=== PATIENT | female | born 1950 | race Caucasian/White ===

== ENCOUNTER 2017-08-30 08:36 | Inpatient (IN) | payer MEDICARE, OTHER ==
[2017-08-15 13:55] VITALS: BMI 29.0
--- NOTE | 2017-08-15 14:42 | PAT Medication Instructions ---
Service Date Aug 15, 2017. Current Home Medication List Acetaminophen Tab (Tylenol), 650 MG PO Q6 PRN for Pain Biotin (Biotin), 1 CAP PO QAM Coenzyme Q10 (Ubidecarenone) (Co Q10), 1 CAP PO QAM Tmlwxfqbtar-Dorasdalwmd-Xac C- (Glucosamine Chondroitin), 1 CAP PO QAM Ibuprofen (Advil), 400 MG PO Q6 PRN for Pain Multivitamin (Multivitamin), 1 TAB PO QAM Rosuvastatin Calcium (Crestor), 5 MG PO HS Sertraline (Zoloft), 50 MG PO QAM Zolpidem Tartrate (Ambien), 5-10 MG PO HS PRN for Insomnia Medication Instructions For Your Scheduled Surgery -Contact your surgeon for instructions for: Ibuprofen (Advil), 400 MG PO Q6 PRN for Pain - Hold the following medications 2 weeks prior to surgery: Coenzyme Q10 (Ubidecarenone) (Co Q10), 1 CAP PO QAM Azqjfjfloyc-Ajrncqjnpfo-Cci C- (Glucosamine Chondroitin), 1 CAP PO QAM - Hold the following medications the morning of surgery: Multivitamin (Multivitamin), 1 TAB PO QAM Biotin (Biotin), 1 CAP PO QAM - Take the following medications the morning of surgery with a sip of water: Sertraline (Zoloft), 50 MG PO QAM Acetaminophen Tab (Tylenol), 650 MG PO Q6 PRN for Pain - Take the following medications as scheduled the night before surgery: Zolpidem Tartrate (Ambien), 5-10 MG PO HS PRN for Insomnia Rosuvastatin Calcium (Crestor), 5 MG PO HS Acetaminophen Tab (Tylenol), 650 MG PO Q6 PRN for Pain If you have any questions please call us at [phone] or [phone] or [phone]
--- NOTE | 2017-08-15 15:38 | DIAGNOSTIC IMAGING REPORT ---
TWO VIEW CHEST CLINICAL HISTORY: Preoperative examination. FINDINGS: PA and lateral chest radiographs are obtained. No prior studies are available for comparison at the time of dictation. The cardiomediastinal silhouette is unremarkable. There is atherosclerotic calcification of the thoracic aorta. The lungs and pleural spaces are clear. There is no pneumothorax. The skeletal structures are osteopenic. Degenerative changes noted throughout the imaged spine. Surgical clips are seen in the right upper quadrant. IMPRESSION: No active disease in the chest. Electronically signed by: Stew Thorne M.D. 08/15/2017 3:36 PM Dictated Date/Time: 08/15/2017 3:36 PM
[2017-08-15 16:11] LABS: BASO % 0.4 %; BASO ABS # 0.02 K/uL (0-0.2); EOS % 1.1 %; EOS ABS # 0.06 K/uL (0-0.5); HEMATOCRIT 39.2 % (37-47); HEMOGLOBIN 13.4 g/dL (12.0-16.0); IG# 0.01 K/uL (0.00-0.02); LYMPH % 34.5 %; MEAN CELL VOLUME 93.3 fL (80-100); MEAN CORPUSCULAR HEMOGLOBIN 31.9 pg (25-34); MEAN CORPUSCULAR HGB CONC 34.2 g/dl (32-36); MEAN PLATELET VOLUME 9.7 fL (7.4-10.4); MONO % 6.2 %; MONO ABS # 0.34 K/uL (0.11-0.59); NEUT % 57.6 %; NEUT ABS # 3.17 K/uL (1.4-6.5); PLATELET COUNT 272 K/uL (130-400); RED CELL DISTRIBUTION WIDTH SD 44.4 fL (36.4-46.3)
[2017-08-15 16:18] LABS: PTT PATIENT 27.2 SECONDS (21.0-31.0)
[2017-08-15 16:21] LABS: CALCIUM 9.2 mg/dl (8.5-10.1); CREATININE 0.71 mg/dl (0.60-1.20); POTASSIUM 3.9 mmol/L (3.5-5.1)
--- NOTE | 2017-08-29 17:20 | HISTORY & PHYSICAL EXAMINATION ---
DATE OF ADMISSION: 08/30/2017 CHIEF COMPLAINT: Chronic right shoulder pain. HISTORY OF PRESENT ILLNESS: This is a 67-year-old female patient of Dr. Kidd'svitlana complaining of chronic right shoulder pain. The patient has been diagnosed with end-stage osteoarthritis, per clinical and radiographic exams. The patient has failed conservative treatment including intraarticular injections and anti-inflammatories. She has also failed Tylenol and Voltaren gel. The patient wished to proceed with a right total shoulder arthroplasty. PAST MEDICAL HISTORY: Anxiety, osteoarthritis. SOCIAL HISTORY: Nonsmoker, nondrinker. PAST SURGICAL HISTORY: Tonsils, appendectomy, gallbladder, LAVH, meniscus tear and hand surgery. FAMILY HISTORY: Noncontributory. REVIEW OF SYSTEMS: The patient complains of chronic right shoulder pain. Otherwise, denies any shortness of breath, chest pain, nausea, vomiting or any other joint complaints. FAMILY HISTORY: Noncontributory. MEDICATIONS: Glucosamine chondroitin daily, a multivitamin daily, probiotic 10 billion cell capsule daily, biotin 1 mg daily, vitamin B complex daily, CoQ10 30 mg daily, Zoloft 50 mg daily, and Crestor 5 mg daily. ALLERGIES: INCLUDE PENICILLINS. PHYSICAL EXAMINATION: GENERAL: Well-developed, well-nourished 67-year-old female in no acute distress. She is alert and oriented x3 and pleasant. HEENT: Normocephalic, atraumatic. Extraocular motions are intact. Pupils are equal and reactive to light. HEART: Regular rate and rhythm. No murmurs are appreciated. LUNGS: Clear. ABDOMEN: Soft, nontender, bowel sounds present. EXTREMITIES: Right shoulder reveals active range of motion of 0-160 passively to full range of motion with pain. She has crepitation and pain with passive range of motion. She has 4/5 strength. NEUROLOGIC: Neurovascularly, she is intact in her right upper extremity. DIAGNOSES: Right shoulder end-stage osteoarthritis, anxiety and osteoarthritis. PLAN: The patient was advised of her diagnosis. Indications, risks, benefits, and postop course have all been reviewed. The patient wishes to proceed with a right total shoulder arthroplasty. Necessary consent forms, preoperative testing and clearances will be obtained.
[~2017-08-30] VITALS: Ht 160 cm; Wt 76.2 kg
[~2017-08-30 08:36] MED LIST: ACET325T96 PO; ACETAMINOPHEN 500 MG TAB PO SCH; BIOT1CAP9 PO; CEFAZOLIN 1000MG IV PUSH 5 ML IV SCH; COEN1CAP PO; CeleBREX 200 MG CAP PO SCH; DEXAMETHASONE 4 MG TAB PO SCH; FAMOTIDINE 20 MG TAB PO SCH; FENTANYL CITRATE INJ 50 MCG/1 ML 2 ML VIAL ONE; GABAPENTIN 300 MG CAP PO SCH; GLUC1CAP35 PO; IBUP-1050 PO; LACTATED RINGER'S 1000ML IV SCH; METOCLOPRAMIDE HCL 10 MG TAB PO SCH; MIDAZOLAM HCL 1 MG/ML 2ML VIAL ONE; MULT-506 PO; ROPIVACAINE 0.5% 5 MG/ML 30 ML VIAL ONE; ROSU5TAB PO; SCOPOLAMINE 1.5 MG TDSY TD SCH; SERT50TA PO; ZOLP5TAB PO
[2017-08-30 08:55] VITALS: BP_SYST 153; BP_SYST 193; BP_DIAS 115; BP_DIAS 94; PULSE 80; TEMP 36.4; O2SAT 97; Ht 160 cm; Wt 76.2 kg
--- NOTE | 2017-08-30 09:16 | History & Physical Bridge Note ---
H&P Re-Evaluation Bridge Note: I have examined the patient, reviewed the History & Physical and in the interval since the performance of the History & Physical I have noted the following changes of clinical significance: No changes noted
[2017-08-30] MEDS ORDERED: ONDANSETRON INJ 2 MG/ML 2 ML VIAL IV PRN ×2 (10:30→14:30)
[2017-08-30] MEDS ORDERED: FENTANYL CITRATE INJ 50 MCG/1 ML 2 ML VIAL IV PRN (10:30)
[2017-08-30] MEDS ORDERED: EpHEDrine SULFATE INJ 50 MG/ML AMP IV PRN (10:30)
[2017-08-30] MEDS ORDERED: ATROPINE SULFATE 0.1 MG/ML 5ML SYR IV PRN (10:30)
[2017-08-30] MEDS ORDERED: EpINEphrine HCL INJ 1 MG/ML 5ML SYRINGE ONE (10:40)
[2017-08-30] MEDS ORDERED: BACITRACIN 50000 UNIT VIAL ONE (10:40)
[2017-08-30] MEDS ORDERED: DEXAMETHASONE SOD INJ 4 MG/ML VIAL ONE (12:56)
[2017-08-30] MEDS ORDERED: ONDANSETRON INJ 2 MG/ML 2 ML VIAL ONE (12:56)
[2017-08-30] MEDS ORDERED: ROCURONIUM BROMIDE 10 MG/ML 5 ML VIAL IV ONE (12:56)
[2017-08-30] MEDS ORDERED: LIDOCAINE HCL 2% 2 ML VIAL (20MG/ML) ONE (12:56)
[2017-08-30] MEDS ORDERED: PROPOFOL IV EMULSION 10 MG/ML 20 ML VIAL IV ONE (12:56)
[2017-08-30] MEDS ORDERED: PHENYLEPHRINE 100MCG/ML 5ML SYR ONE (13:50)
--- NOTE | 2017-08-30 14:12 | [facility] Post Operative Brief Note ---
Immediate Operative Summary Operative Date Aug 30, 2017. Pre-Operative Diagnosis Right shoulder End-Stage osteoarthritis Post-Operative Diagnosis Same,biceps tenosynovitis Procedure(s) Performed Right Total Shoulder Arthroplasty,biceps tenodesis Surgeon Dr Kidd Commission Clerk Surgeon(s) Hai Bains PA-C Estimated Blood Loss 75CC Findings Consistent with Post-Op Diagnosis Specimens A. Right Humeral Head Drains 2 hemovac Anesthesia Type General Regional Complication(s) none
[2017-08-30] MEDS ORDERED: METOCLOPRAMIDE HCL INJ 5 MG/ML 2 ML VIAL IV PRN (14:30)
[2017-08-30] MEDS ORDERED: SOD PHOSPHATE/SOD BIPHOSPHATE ENEMA 132 ML BTL PR PRN (14:30)
[2017-08-30] MEDS ORDERED: NALOXONE HCL 0.4 MG/1 ML VIAL/CARP IV PRN (14:30)
[2017-08-30] MEDS ORDERED: BISACODYL 10 MG SUPP PR PRN (14:30)
[2017-08-30] MEDS ORDERED: MAGNESIUM HYDROXIDE SUSP 30 ML UDC PO PRN (14:30)
[2017-08-30] MEDS ORDERED: ZOLPIDEM TARTRATE 5 MG TAB PO PRN (14:30)
--- NOTE | 2017-08-30 14:34 | Discharge Instructions ---
Discharge Instructions Date of Service Aug 30, 2017. Admission Reason for Admission: Right Shoulder Degenerative Joint Disease Discharge Discharge Diagnosis / Problem: Right TSA, biceps tenodesis Discharge Goals Goal(s): Improve function Activity Recommendations Activity Limitations: as noted below . Instructions / Follow-Up Instructions / Follow-Up ACTIVITY RECOMMENDATIONS: SELF CARE INSTRUCTIONS AFTER TOTAL SHOULDER ARTHROPLASTY A. You may do daily exercises as taught in physical therapy while in hospital. No lifting with the operative arm. Please schedule your outpatient physical therapy appointment to begin within 2-3 days after leaving the hospital. Specific restrictions will be written on your physical therapy prescription that is provided to you. B. You are to wear your sling/immobilizer at all times EXCEPT when performing your daily exercises, participating in physical therapy and for hygiene purposes. C. You may perform dry, daily dressing changes. Please keep your incision covered. You may shower 48 hours after surgery. Do not apply soap or any ointment/ lotions directly over incision. Do not soak incision in bath tub/swimming pool. D. You may use ice as needed to operative shoulder. SPECIAL CARE INSTRUCTIONS: MEDICATION INSTRUCTIONS: *It is recommended you take Aspirin 325mg daily for four weeks post-op. VERY IMPORTANT TO READ AND REVIEW A. There are a few signs you need to watch for after you are home. Call [facility] at [phone] if you experience any of the followin. Increased severe shoulder pain. Some pain is expected especially when you exercise. 2. Increased swelling in you shoulder or arm; pain or swelling in either upper extremity. 3. Any fluid drainage from the incision. 4. Shortness of breath or chest pain. B. Please call [facility] at [phone] if you have any questions or concerns about your operation or recovery. C. Call your physician if: 1. Temperature is greater than 101 degrees (F). 2. Pain is not relieved by prescribed pain medications. 3. Increase drainage or redness from incision. 4. Unanswered questions or concerns. FOLLOW UP VISIT: Please call [facility] at [phone] to schedule a follow up appointment with Dr. Kidd or his PA in 12-14 days from your surgery date. Current Hospital Diet Patient's current hospital diet: Regular Diet Discharge Diet Recommended Diet: Regular Diet Procedures Procedures Performed: Right Total Shoulder Arthroplasty,biceps tenodesis Pending Studies Studies pending at discharge: no Medical Emergencies . Who to Call and When: Medical Emergencies: If at any time you feel your situation is an emergency, please call 911 immediately. . Non-Emergent Contact Non-Emergency issues call your: Primary Care Provider . "Provider Documentation" section prepared by Poli Bains. . VTE Core Measure Inpt VTE Proph given/why not?: SCD's [place] Drug Monitoring Program Search Results: patient reviewed within database, no issues identified
--- NOTE | 2017-08-30 14:42 | Anesthesiology Progress Note ---
Anesthesia Post Op Note Date & Time Aug 30, 2017 at 14:42 Vital Signs Pain Intensity: 0 Vital Signs Past 12 Hours Date Time Temp Pulse Resp B/P (MAP) Pulse Ox O2 Delivery O2 Flow Rate FiO2 08/30/17 14:25 36.5 83 12 137/80 99 Nasal Cannula 4 08/30/17 08:55 36.4 80 20 193/94 97 Room Air 153/115 Notes Mental Status: alert / awake / arousable, participated in evaluation Pt Amnestic to Procedure: Yes Nausea / Vomiting: adequately controlled Pain: adequately controlled Airway Patency, RR, SpO2: stable & adequate BP & HR: stable & adequate Hydration State: stable & adequate Anesthetic Complications: no major complications apparent Block working well in pacu
--- NOTE | 2017-08-30 15:00 | DIAGNOSTIC IMAGING REPORT ---
R SHOULDER MIN 2 VIEWS ROUTINE HISTORY: 67 years-old Female Post shoulder surgery status post right shoulder surgery. Degenerative joint disease. COMPARISON: Chest radiographs 08/15/2017 TECHNIQUE: 2 views of the right shoulder FINDINGS: Postoperative changes from right shoulder hemiarthroplasty which is in satisfactory alignment. No retained foreign bodies identified. Surgical joe are noted along with expected postsurgical soft tissue swelling and deep tissue air. Surgical drain is in place. Imaged lung urban appear clear. Moderate degenerative changes of the right AC joint. IMPRESSION: Right shoulder arthroplasty in satisfactory alignment. The above report was generated using voice recognition software. It may contain grammatical, syntax or spelling errors. Electronically signed by: Agusto Duenas M.D. 08/30/2017 2:58 PM Dictated Date/Time: 08/30/2017 2:57 PM
[2017-08-30 15:50] VITALS: O2SAT 96
[2017-08-30 16:10] VITALS: BP 125/81; PULSE 82; TEMP 36.7; O2SAT 97
[2017-08-30 16:40] VITALS: BP 137/80; PULSE 89; TEMP 36.5; O2SAT 98
[2017-08-30] MEDS: CHECK SCOPOLAMINE PATCH PLACEMENT SCH (16:50)
[2017-08-30 18:40] VITALS: BP 118/74; PULSE 82; TEMP 36.6; O2SAT 93
[2017-08-30] MEDS: CLINDAMYCIN IV 600 MG in DEXTROSE 5% 50ML 50 ML IV SCH (20:56)
[2017-08-30] MEDS: D5W AND 1/2NSS + 20MEQ KCL 1,000 ML IV SCH (20:56)
[2017-08-30] MEDS: ROSUVASTATIN CALCIUM 5 MG TAB PO SCH (20:56)
[2017-08-30] MEDS: DOCUSATE SODIUM 100 MG CAP PO SCH (20:56)
[2017-08-30] MEDS: ACETAMINOPHEN 500 MG TAB PO SCH (21:01)
[2017-08-30 23:15] VITALS: BP 108/68; PULSE 85; TEMP 36.6; O2SAT 94
--- NOTE | 2017-08-31 00:39 | OPERATIVE REPORT ---
DATE OF OPERATION: 08/30/2017 INDICATION FOR PROCEDURE: The patient is a 67-year-old female who presents with chronic bilateral shoulder pain. She has radiographs demonstrating end-stage osteoarthritis in both of her shoulders. Her right shoulder was more symptomatic. Radiographs demonstrate in the right shoulder that she is veba-jr-xqgo in the glenohumeral joint. She has an inferior humeral osteophyte. PREOPERATIVE DIAGNOSIS: End-stage osteoarthritis of the right shoulder. POSTOPERATIVE DIAGNOSIS: Same including biceps tendinitis, chronic. PROCEDURE: Right total shoulder arthroplasty, biceps tenodesis. SURGEON: Seymour Kidd MD. DIGITIZER OPERATOR: Poli Bains PA-C. ANESTHESIA: Regional block and general. OPERATIVE PROCEDURE: The patient was taken to the operating room and anesthetized with regional block and general anesthetic. She was positioned on the operating room table with a 40 degree beach chair position. A towel roll was placed in the medial border of her right scapula. She was translated to the right side of the bed, so her shoulder could be manipulated off the bed as necessary. Her shoulder was examined demonstrating she had a pretty good range of motion. She had about 170 degrees of forward elevation, 80 degrees of external rotation, 90 degrees of internal rotation. She had a little bit of ligamentous laxity. She had wnvc-jz-wrjb crepitation. After this right shoulder was sterilely prepped and draped with ChloraPrep. An anterior incision was made in the deltopectoral interval. Skin was incised sharply. Subcutaneous flaps were elevated. The cephalic vein was dissected out and retracted laterally with the deltoid. The pectoralis was retracted medially. The upper centimeter of the pectoralis was released for inferior exposure. Biceps tendon was identified and noted to have chronic tendinitis. The synovium was resected. The biceps tendon was tenodesed to the pectoralis tendon with a otvnrz-wx-cxags #2 FiberWire sutures. The proximal biceps was resected. The circumflex vessels were tied off and divided laterally. The rotator cuff was noted to be intact. A self-retaining retractor was placed. The rotator interval was opened up and divided laterally. A transtendinous incision was made through the subscapularis tendon down into the capsule. Then the incision was carried laterally along the bicipital groove and the subperiosteal dissection was performed releasing the subscapularis off of the neck of the humerus and the capsule was released off inferior neck of the humerus. Gradually, externally rotated the arm exposing the inferior humeral osteophytes. The humeral head was completely down to bone. The osteophytes were resected with an artist's chisel and a rongeur. We did place a Vicryl traction suture into the subscapularis tendon to control that. The rotator interval was then released down to the glenoid. The humeral head was then retracted posterior to the glenoid with a Fukuda retractor. The labrum was resected circumferentially when the biceps tendon was resected. The glenoid was inspected and demonstrated that there was some osteoarthritic spurring on the anterior glenoid. The spur was resected. There was a little rim of articular cartilage still remaining anteriorly but the remainder of the posterior glenoid was eburnated bone and that was more slipped off posteriorly with some retroversion due to some wear of the bone. There was a posterior inferior osteophyte noted on the glenoid. We did release the capsule subperiosteally off the anterior glenoid inferiorly and posterior inferiorly using electrocautery right on the edge of the bone and a Concepcion elevator. The humeral head was then re-exposed with extension and external rotation. Humeral head cut was made with an oscillating saw in anatomic fashion. The Tornier Ascend Flex humeral component and the Affiniti CortiLoc glenoid component was utilized for this procedure. The central awl was used followed by sizing broaches up to a size 3 and then box osteotome was used to open the canal followed by broaches up to a 3 followed by a cup protector. The humerus was retracted posterior to the glenoid. The central drill hole was made into the glenoid for the glenoid component reamer. We chose to use the 40 mm glenoid component. The reamer for the 40 mm component was utilized. We did slightly ream down the anterior side to help change some of the version. The central drill hole was widened for the central peg of the component. The guide for the peripheral pegs was placed and the peripheral peg holes were drilled. Trial reduction was performed which was satisfactory and then the glenoid was irrigated copiously with antibiotic solution with bacitracin and then the drill holes were packed with epinephrine soaked tampons. Then the [place]os G cement was vacuum mixed. Tampons were removed. The glenoid was dried. The drill holes for the pegs were cemented with pressurized cement. We placed cement on the back of the glenoid with the central peg being pressfit. Then the 40 mm glenoid component was implanted in its position and impacted with the impactor until fully seated. Excess cement was cleared. The component was held in place until the cement cured and then the glenoid was irrigated copiously with antibiotic solution and bacitracin. Then attention was taken back to the humerus which time the cut protector was removed. The 43 mm x 60 mm low offset humeral head was rotated appropriately to get the best coverage and then did a trial reduction which was satisfactory stability through full range of motion. Then the humeral trial was removed. The neck cut was noted to be in an A. The final component was then assembled which was a 3A standard Ascend Flex humeral stem assembled to the 43 x 60 mm low offset humeral head. Then this implant was impacted into the canal with a tight fit. This was reduced to the glenoid. After further irrigation, the subscapularis was repaired with transosseous #5 FiberWire sutures that were placed prior to implanting the stem. These were placed into the hard bone in the bicipital groove, placed transosseously around the lesser tuberosity. The sutures were placed in Carlos-Milton suture technique repairing the subscapularis. Then, lateral row soft tissue fixation was performed with kmutru-ki-wgivc #2 FiberWire sutures. The rotator interval was closed maximal external rotation with interrupted #2 Fiberwire sutures. The patient's pectoralis split for inferior exposure was repaired with uqlrwh-kz-ejdqg #2 FiberWire sutures and we did tenodese the biceps tendon to the pectoralis with qgzfxv-tg-wxcqv #2 FiberWire sutures which was reinforced when we repaired the pectoralis at the end of the procedure. The wound was copiously irrigated again. Then 2 Hemovac drains were placed deep to deltopectoral interval. The deltopectoral interval was repaired with [id number]-kt-rkvky #1 Vicryl sutures. We did note that she had some bleeding in the cephalic vein. We tried cauterizing it but it continued to bleed, so we had to tie it off with silk ties and this occurred during the reaming part of the procedure. The subcutaneous tissue closed with interrupted 2-0 Vicryl sutures, skin closed with joe, sterile dressings were applied and a sling immobilizer. FREDY Sykes was my first aid officer. He functioned as first aid officer for the entire procedure. He assisted in patient positioning, prepping, draping, arm positioning, instrument management and soft tissue retraction. He performed the subcutaneous and skin closure and will participate in postoperative care of the patient. The patient's postoperative range of motion was assessed for stability of the repair, we had 45 degrees of abduction and 70 degrees of external rotation without tension on the repair. We had 90 degrees of abduction and forward elevation to 170 degrees range of motion without any tension on the repair. I attest to the content of the Intraoperative Record and any orders documented therein. Any exception s are noted below.
[2017-08-31] MEDS: OXYCODONE HCL IR 5 MG TAB (IMMEDIATE RELEASE) PO PRN ×5 (02:17→21:15)
[2017-08-31] MEDS: D5W AND 1/2NSS + 20MEQ KCL 1,000 ML IV SCH ×2 (03:33→14:10)
[2017-08-31] MEDS: CLINDAMYCIN IV 600 MG in DEXTROSE 5% 50ML 50 ML IV SCH (03:33)
[2017-08-31] MEDS: MoRPHine SULFATE 2 MG/ML CARP IV PRN (03:42)
[2017-08-31 04:15] VITALS: BP 120/72; PULSE 82; TEMP 36.6; O2SAT 93
[2017-08-31] MEDS: ACETAMINOPHEN 500 MG TAB PO SCH ×3 (05:21→21:02)
--- NOTE | 2017-08-31 05:48 | Orthopedic Progress Note ---
Orthopedic Progress Note Date of Service Aug 31, 2017. Subjective Post OP Day: 1 Reports: feeling well, pain controlled w PO medications, Denies: complaints, chest pain, SOB, nausea / vomiting, light headedness, calf pain Additional Notes: AM labs pending. Objective N/V intact, capillary refill less than 2 sec., dressing C/D/I, A&O x3 Sling in tact, fingers mobile. Date Time Temp Pulse Resp B/P (MAP) Pulse Ox O2 Delivery O2 Flow Rate FiO2 08/31/17 04:15 36.6 82 18 120/72 (88) 93 Room Air 08/31/17 00:00 Room Air 08/30/17 23:15 36.6 85 16 108/68 (81) 94 Room Air 08/30/17 18:40 36.6 82 18 118/74 (89) 93 Room Air 08/30/17 16:40 36.5 89 18 137/80 (99) 98 Nasal Cannula 2.0 08/30/17 16:10 36.7 82 18 125/81 (96) 97 Nasal Cannula 2.0 08/30/17 15:50 96 Nasal Cannula 2.0 08/30/17 15:15 36.5 73 16 141/72 97 Nasal Cannula 4 08/30/17 15:05 75 16 142/74 100 Nasal Cannula 4 08/30/17 14:55 78 16 133/66 100 Nasal Cannula 4 08/30/17 14:45 70 12 138/72 100 Nasal Cannula 4 08/30/17 14:35 75 12 130/73 99 Nasal Cannula 4 08/30/17 14:25 36.5 83 12 137/80 99 Nasal Cannula 4 08/30/17 08:55 36.4 80 20 193/94 97 Room Air 153/115 Laboratory Results 24 Hours: Test 08/31/17 04:44 Assessment & Plan Assessment: POD #1, Right TSA, biceps tenodesis Plan: PT/ OT D/C planning- Home w OPPT As per medicine. Inhouse Planning Pain Management: Morphine, PO Tylenol, Oxy IR DVT Prophylaxis: SCDs Discharge Planning Discharge Planning: home with oppt Pain Management: PO Tylenol, Oxy IR Therapy: Physical Therapy, Occupational Therapy
[2017-08-31 05:56] LABS: HEMATOCRIT 32.3 % (37-47); MEAN CELL VOLUME 93.4 fL (80-100); MEAN CORPUSCULAR HEMOGLOBIN 31.8 pg (25-34); MEAN CORPUSCULAR HGB CONC 34.1 g/dl (32-36); MEAN PLATELET VOLUME 9.4 fL (7.4-10.4); PLATELET COUNT 220 K/uL (130-400); RED CELL DISTRIBUTION WIDTH CV 13.1 % (11.5-14.5); RED CELL DISTRIBUTION WIDTH SD 44.4 fL (36.4-46.3); WHITE BLOOD COUNT 10.62 K/uL (4.8-10.8)
[2017-08-31 06:37] LABS: CALCIUM 8.7 mg/dl (8.5-10.1); CREATININE 0.64 mg/dl (0.60-1.20); POTASSIUM 4.1 mmol/L (3.5-5.1)
[2017-08-31 07:49] VITALS: BP 114/71; PULSE 72; TEMP 36.3; O2SAT 98
[2017-08-31] MEDS: CHECK SCOPOLAMINE PATCH PLACEMENT SCH ×3 (08:00→15:56)
[2017-08-31] MEDS: MoRPHine SULFATE 4 MG/ML 1 ML CARP\\VIAL IV PRN ×3 (10:07→18:12)
[2017-08-31] MEDS: DOCUSATE SODIUM 100 MG CAP PO SCH ×2 (10:07→21:01)
[2017-08-31] MEDS: SERTRALINE HCL 50 MG TAB PO SCH (10:08)
[2017-08-31] MEDS: PANTOprazole SOD 40 MG TAB PO SCH (10:08)
[2017-08-31] MEDS: MULTIVITAMIN TAB PO SCH (10:08)
[2017-08-31 11:38] VITALS: BP 110/72; PULSE 69; TEMP 36.6; O2SAT 93
--- NOTE | 2017-08-31 12:53 | Medical Consult ---
Consultation Date of Consultation: Aug 31, 2017. Attending Physician: Seymour Kidd M.D. Reason for Consultation: Medical management History of Present Illness Patient is a 67 y/o male, with PMHx of anxiety, HLD, osteoarthritis, and DJD, s/ p R total shoulder arthroplasty and biceps tenodesis by Dr. Kidd on 08/30. Hospitalist team was consulted for medical management. Pain is well controlled- but starting to increase. Eating and drinking OK. +flatus, no BM postop. Patient denies any fever, chills, sweats, lightheadedness, dizziness, vision changes, CP, palpitations, edema, SOB, wheezing, cough, abdominal pain, nausea, vomiting, diarrhea, urinary symptoms, melena, numbness/tingling, weakness, anxiety/depression, active bleeding, or new skin discoloration/changes. Past Medical/Surgical History PAST MEDICAL HISTORY: Anxiety HLD osteoarthritis DJD PAST SURGICAL HISTORY: Tonsillectomy appendectomy cholecystectomy LAVH meniscus tear hand surgery Social History Smoking Status: Never Smoker Alcohol Use: none Marital Status: Housing Status: lives with significant other Allergies Coded Allergies: Penicillins (Verified Allergy, Unknown, RASH, 08/30/17) Home Medications Reported Home Medications Medications Dose Route/Sig Max Daily Dose Days Date Category Co Q10 (Coenzyme Q10) 30 Mg Cap 1 Cap PO QAM 08/15/17 Reported Biotin 10 Mg Cap 1 Cap PO QAM 08/15/17 Reported Multivitamin (Multivitamins) Tab 1 Tab PO QAM 08/15/17 Reported Glucosamine Chondroitin (Ovdgrkfcizm-Velotzvrkgt-Elo C-) 1 Cap Cap 1 Cap PO QAM 08/15/17 Reported Advil (Ibuprofen) 200 Mg Tab 400 Mg PO Q6 PRN 08/15/17 Reported Tylenol (Acetaminophen) 325 Mg Tab 650 Mg PO Q6 PRN 08/15/17 Reported Ambien (Zolpidem Tartrate) 5 Mg Tab 5-10 Mg PO HS PRN 08/15/17 Reported Zoloft (Sertraline HCl) 50 Mg Tab 50 Mg PO QAM 08/15/17 Reported Crestor (Rosuvastatin Calcium) 5 Mg Tab 5 Mg PO HS 08/15/17 Reported Current Inpatient Medications Current Inpatient Medications Medications (Trade) Dose Ordered Sig/Marielena Route Start Time Stop Time Status Last Admin Dose Admin Miscellaneous (Remove Transderm-Scop Patch) 1 ea Q72H N/A 09/02/17 06:00 09/02/17 06:01 Miscellaneous Information (Check Scopolamine Patch Placement) 1 ea QS N/A 08/30/17 16:00 09/02/17 05:59 08/31/17 00:00 1 EA Rosuvastatin Calcium (Crestor Tab) 5 mg HS PO 08/30/17 21:00 09/29/17 20:59 08/30/17 20:56 5 MG Sertraline HCl (Zoloft Tab) 50 mg QAM PO 08/31/17 09:00 09/30/17 08:59 Diphenhydramine HCl (Benadryl Cap) 25 mg Q8 PRN PO 08/30/17 14:30 09/29/17 14:29 Zolpidem Tartrate (Ambien Tab) 5 mg HSZ PRN PO 08/30/17 14:30 09/29/17 14:29 Metoclopramide HCl (Reglan Inj) 10 mg Q6H PRN IV 08/30/17 14:30 09/29/17 14:29 Ondansetron HCl (Zofran Inj) 4 mg Q6H PRN IV 08/30/17 14:30 09/29/17 14:29 Pantoprazole Sodium (Protonix Tab) 40 mg QAM PO 08/31/17 09:00 09/04/17 08:59 Potassium Chloride/Dextrose/ Sod Cl 1,000 ml @ 100 mls/hr Q10H IV 08/30/17 16:30 08/31/17 16:29 08/31/17 03:33 100 MLS/HR Oxycodone HCl (Roxicodone Immediate Rel Tab) `1-2 TABS FOR PAIN `1 TAB... Q4H PRN PO 08/30/17 14:30 09/13/17 14:29 08/31/17 07:29 10 MG Acetaminophen (Tylenol Tab) 1,000 mg Q8 PO 08/30/17 22:00 09/29/17 21:59 08/31/17 05:21 1,000 MG Morphine Sulfate (MoRPHine SULFATE INJ) 2 mg Q2H PRN IV 08/30/17 14:30 09/13/17 14:29 08/31/17 03:42 2 MG Naloxone HCl (Narcan Inj) 0.1 mg Q2M PRN IV 08/30/17 14:30 09/29/17 14:29 Magnesium Hydroxide (Milk Of Magnesia Susp) 30 ml Q6H PRN PO 08/30/17 14:30 09/29/17 14:29 Bisacodyl (Dulcolax Supp) 10 mg DAILY PRN CO 08/30/17 14:30 09/29/17 14:29 Sodium Biphosphate/ Sodium Phosphate (Fleet Enema) 132 ml DAILY PRN CO 08/30/17 14:30 09/29/17 14:29 Docusate Sodium (coLACE CAP) 100 mg BID PO 08/30/17 21:00 09/29/17 20:59 08/30/17 20:56 100 MG Multivitamins (Multivitamin Tab) 1 tab DAILY PO 08/31/17 09:00 09/30/17 08:59 Morphine Sulfate (MoRPHine SULFATE INJ) 4 mg Q2H PRN IV 08/30/17 16:15 09/13/17 16:14 Physical Exam Date Time Temp Pulse Resp B/P (MAP) Pulse Ox O2 Delivery O2 Flow Rate FiO2 08/31/17 07:49 36.3 72 17 114/71 (85) 98 Room Air 08/31/17 04:15 36.6 82 18 120/72 (88) 93 Room Air 08/31/17 00:00 Room Air 08/30/17 23:15 36.6 85 16 108/68 (81) 94 Room Air 08/30/17 18:40 36.6 82 18 118/74 (89) 93 Room Air 08/30/17 16:40 36.5 89 18 137/80 (99) 98 Nasal Cannula 2.0 08/30/17 16:10 36.7 82 18 125/81 (96) 97 Nasal Cannula 2.0 08/30/17 15:50 96 Nasal Cannula 2.0 08/30/17 15:15 36.5 73 16 141/72 97 Nasal Cannula 4 08/30/17 15:05 75 16 142/74 100 Nasal Cannula 4 08/30/17 14:55 78 16 133/66 100 Nasal Cannula 4 08/30/17 14:45 70 12 138/72 100 Nasal Cannula 4 08/30/17 14:35 75 12 130/73 99 Nasal Cannula 4 08/30/17 14:25 36.5 83 12 137/80 99 Nasal Cannula 4 08/30/17 08:55 36.4 80 20 193/94 97 Room Air 153/115 General Appearance: WD/WN, no apparent distress Head: normocephalic, atraumatic Eyes: normal inspection, PERRL ENT: hearing grossly normal Neck: supple Respiratory/Chest: lungs clear, no respiratory distress, no accessory muscle use Cardiovascular: regular rate, rhythm Abdomen/GI: normal bowel sounds, non tender, soft Back: normal inspection Extremities/Musculoskelatal: no calf tenderness, no pedal edema, + pertinent finding (RUE in sling ) Neurologic/Psych: alert, normal mood/affect, oriented x 3 Skin: normal color, warm/dry, no rash Laboratory Results Last 24 Hours Test 08/31/17 05:46 White Blood Count 10.62 K/uL Red Blood Count 3.46 M/uL Hemoglobin 11.0 g/dL Hematocrit 32.3 % Mean Corpuscular Volume 93.4 fL Mean Corpuscular Hemoglobin 31.8 pg Mean Corpuscular Hemoglobin Concent 34.1 g/dl RDW Standard Deviation 44.4 fL RDW Coefficient of Variation 13.1 % Platelet Count 220 K/uL Mean Platelet Volume 9.4 fL Sodium Level 139 mmol/L Potassium Level 4.1 mmol/L Chloride Level 107 mmol/L Carbon Dioxide Level 27 mmol/L Anion Gap 5.0 mmol/L Blood Urea Nitrogen 12 mg/dl Creatinine 0.64 mg/dl Est Creatinine Clear Calc Drug Dose 81.1 ml/min Estimated GFR () 105.5 Estimated GFR (Non- 91.0 BUN/Creatinine Ratio 18.4 Random Glucose 154 mg/dl Calcium Level 8.7 mg/dl Assessment & Plan Patient is a 67 y/o male, with PMHx of anxiety, HLD, osteoarthritis, and DJD, s/ p R total shoulder arthroplasty and biceps tenodesis by Dr. Kidd on 08/30. Hospitalist team was consulted for medical management. s/p R total shoulder arthroplasty and biceps tenodesis by Dr. Kidd on 08/30: - Surgical management, pain management, PT/OT, and DVT prophylaxis as per primary team - Encourage incentive spirometer - Bowel regimen ordered - CBC and PRP- STABLE HLD: Continue Crestor 5 mg daily Anxiety: Zoloft 50 mg daily GI prophylaxis: Protonix 40 mg daily DVT prophylaxis: As per surgical team Dispo: As per primary team- planning for home w/ outpatient PT - Patient is medically stable from medical standpoint- will sign off, please feel free to contact with any new questions/concerns. I personally interviewed and examined the patient. I agree with history of present illness and physical exam mentioned above, I also performed my own history taking and examination. Past medical history and review of system has been obtained by myself I reviewed all pertinent labs and studies Reviewed current medications I discussed and formulated of the assessment and plan mentioned above. Please refer to the Summary mentioned below. 67-year-old female with severe arthritis presented to the hospital for an elective right shoulder arthroplasty, procedure went well uneventful. Patient has no active medical problems. Pain is adequately controlled We'll sign off the patient and please let us know in the future if there is any question or if we can be of any help thank you. General Appearance: not in acute distress Eyes: normal Sclerae, extraocular muscle intact ENT: hearing grossly normal Neck: supple Respiratory/Chest: normal air entry bilateral ,no respiratory distress, no accessory muscle use Cardiovascular: regular rate, rhythm, no murmur Abdomen: non tender, soft, no masses Extremities: no edema, right shoulder strap Neurologic/Psychiatric: Awake alert oriented times place and person moves all extremities sensation intact cranial nerves II-12 appear to be intact Skin: normal color, warm/dry, no rash Mel Navarrete MD, [facility]
--- NOTE | 2017-08-31 13:47 | Anesthesiology Progress Note ---
Anesthesia Post Op Note Date & Time Aug 31, 2017 at 13:46 Vital Signs Vital Signs Past 12 Hours Date Time Temp Pulse Resp B/P (MAP) Pulse Ox O2 Delivery O2 Flow Rate FiO2 08/31/17 11:38 36.6 69 16 110/72 (85) 93 Room Air 08/31/17 07:49 36.3 72 17 114/71 (85) 98 Room Air 08/31/17 07:20 Room Air 08/31/17 04:15 36.6 82 18 120/72 (88) 93 Room Air Notes Mental Status: alert / awake / arousable, participated in evaluation Pt Amnestic to Procedure: Yes Nausea / Vomiting: adequately controlled Pain: adequately controlled Airway Patency, RR, SpO2: stable & adequate BP & HR: stable & adequate Hydration State: stable & adequate Anesthetic Complications: no major complications apparent
[2017-08-31 15:10] VITALS: O2SAT 93
[2017-08-31 16:25] VITALS: BP 132/74; PULSE 66; TEMP 36.7; O2SAT 96
[2017-08-31] MEDS: ROSUVASTATIN CALCIUM 5 MG TAB PO SCH (21:14)
[2017-08-31 23:20] VITALS: BP 106/65; PULSE 80; TEMP 36.5; O2SAT 91
[2017-09-01] MEDS: MoRPHine SULFATE 2 MG/ML CARP IV PRN ×2 (00:44→09:19)
[2017-09-01] MEDS: OXYCODONE HCL IR 5 MG TAB (IMMEDIATE RELEASE) PO PRN ×3 (02:24→10:43)
[2017-09-01] MEDS: ACETAMINOPHEN 500 MG TAB PO SCH (05:36)
[2017-09-01 07:05] LABS: HEMATOCRIT 32.6 % (37-47); HEMOGLOBIN 10.6 g/dL (12.0-16.0); MEAN CELL VOLUME 95.6 fL (80-100); MEAN CORPUSCULAR HEMOGLOBIN 31.1 pg (25-34); MEAN CORPUSCULAR HGB CONC 32.5 g/dl (32-36); MEAN PLATELET VOLUME 9.5 fL (7.4-10.4); PLATELET COUNT 210 K/uL (130-400); RED CELL DISTRIBUTION WIDTH CV 13.4 % (11.5-14.5); RED CELL DISTRIBUTION WIDTH SD 47.2 fL (36.4-46.3); WHITE BLOOD COUNT 8.92 K/uL (4.8-10.8)
[2017-09-01 07:35] LABS: CALCIUM 8.6 mg/dl (8.5-10.1); CREATININE 0.61 mg/dl (0.60-1.20)
[2017-09-01] MEDS ORDERED: ACET-24 PO (07:40)
[2017-09-01] MEDS ORDERED: RXC5 PO (07:40)
[2017-09-01] MEDS ORDERED: ONDA8TAB6 PO (07:40)
[2017-09-01 07:55] VITALS: BP 150/79; PULSE 79; TEMP 37.2; O2SAT 91
--- NOTE | 2017-09-01 08:16 | Progress Note ---
Orthopedic SOAP Note Subjective Date of Service: Sep 01, 2017. Reports: feeling well, pain controlled w PO medications Objective N/V intact, dressing C/D/I, incision C/D/I Date Time Temp Pulse Resp B/P (MAP) Pulse Ox O2 Delivery O2 Flow Rate FiO2 09/01/17 07:55 37.2 79 16 150/79 (102) 91 Room Air 09/01/17 00:52 Room Air 08/31/17 23:20 36.5 80 16 106/65 (79) 91 Room Air 08/31/17 16:25 36.7 66 16 132/74 (93) 96 Room Air 08/31/17 15:10 93 Room Air 08/31/17 11:38 36.6 69 16 110/72 (85) 93 Room Air Laboratory Results 24 Hours: Test 09/01/17 06:15 Hematocrit 32.6 % Hemoglobin 10.6 g/dL Assessment POD #2 Right TSA, biceps tenodesis Plan PT/ OT D/C planning- Home w OPPT As per medicine.d/c home
[2017-09-01] MEDS: CHECK SCOPOLAMINE PATCH PLACEMENT SCH ×2 (08:28)
[2017-09-01] MEDS: MULTIVITAMIN TAB PO SCH (09:16)
[2017-09-01] MEDS: SERTRALINE HCL 50 MG TAB PO SCH (09:16)
[2017-09-01] MEDS: PANTOprazole SOD 40 MG TAB PO SCH (09:17)
[2017-09-01] MEDS: DOCUSATE SODIUM 100 MG CAP PO SCH (10:43)
[2017-09-01 10:58] VITALS: BP 150/79; PULSE 79; TEMP 37.2; O2SAT 91
== END 2017-09-01 11:35 | disposition home or self-care (01) | DRG 483 ==
LOC: C.ACU 08:36 → C.3E 09:13 → ENRESERV 15:12
PROVIDERS: ADMIT Orthopaedic Surgery Sports Medicine; ATTEND Orthopaedic Surgery Sports Medicine
PROC: 0RRJ0JZ Replacement of Right Shoulder Joint with Synthetic Substitute, Open Approach (ICD-10-PCS; principal; 2017-08-30 10:45)
PROC: 0LQ30ZZ Repair Right Upper Arm Tendon, Open Approach (ICD-10-PCS; principal; 2017-08-30 10:45)
DX: M19.011 Primary osteoarthritis, right shoulder (principal); M75.21 Bicipital tendinitis, right shoulder; M19.012 Primary osteoarthritis, left shoulder; F41.9 Anxiety disorder, unspecified; Z79.899 Other long term (current) drug therapy

== ENCOUNTER 2018-08-15 10:55 | Inpatient (IN) ==
--- NOTE | 2018-07-24 11:34 | Anesthesiology Consultation ---
Date of Service July 24, 2018 Assessment & Plan (1) Encounter for pre-operative examination: Chart Review Chart Review: Acceptable Risk for Surgery and Patient seen in Pre Admission Testing Teaching & Discussion Pre-Anesthesia Teaching/Discussion Notes: Instructed NPO after midnight before surgery,except medications with 15 cc of water. Medication instructions provided according to the PAT guidelines. History Surgery Operation Date: 08/15/18 08:45 Proposed Procedures p Left Total Shoulder Arthroplasty - Seymour Kidd MD Height/Weight Height: 5 ft 3 in Weight: 78.4 kg Allergies Allergy/AdvReac Type Severity Reaction Status Date / Time Penicillins Allergy Unknown RASH Verified 07/05/18 13:01 Medications Home Medications Medication Instructions Recorded Confirmed Last Taken acetaminophen [Tylenol Extra 500 mg PO Q8H PRN 07/05/18 07/05/18 Unknown Strength] cholecalciferol (vitamin D3) 2,000 unit PO QAM 07/05/18 07/05/18 Unknown [Vitamin D3] coenzyme Q10 30 mg PO QAM 07/05/18 07/05/18 Unknown plwctymibrt-uuznlpaln-fnz C-Mn 1 tab PO QAM 07/05/18 07/05/18 Unknown [Glucosamine Chondroitin MaxStr] meloxicam [Mobic] 15 mg PO QAM 07/05/18 07/05/18 Unknown multivitamin 1 tab PO QAM 07/05/18 07/05/18 Unknown omega 2-ahn-zfz-fish oil [Fish Oil] 1 tab PO QAM 07/05/18 07/05/18 Unknown rosuvastatin 5 mg PO HS 07/05/18 07/05/18 Unknown sertraline 50 mg PO QAM 07/05/18 07/05/18 Unknown zolpidem 5 - 10 mg PO HS PRN 07/05/18 07/05/18 Unknown Past Medical History Medical History Anxiety Degenerative disc disease CERVICAL Hyperlipidemia Migraine Obesity Osteoarthritis Past Surgical History Surgical History History of appendectomy History of arthroscopy RIGHT KNEE History of carpal tunnel release R/L History of cholecystectomy History of hysterectomy PARTIAL History of tonsillectomy History of total shoulder replacement RIGHT TSA= 08/30/17= GRADE VIEW 1, MAC 3, ETT 7.0 + PNB AT [facility] Hx of eye surgery RIGHT EYE TEAR DUCT REPAIR Past Anesthesia History No Hx of Anesthesia Complications (EXCEPT PONV) and No Family Hx of Anesthesia Complications History of PONV Yes Motion Sickness Screening History of Motion Sickness: No Social History Smoking Status: Never smoker Do You Dip or Chew Tobacco: No Hx Alcohol Use: Yes Alcohol type: wine alcohol intake frequency: a few times a week Hx Substance Use: No Exercise / Class Metabolic Activity II 4-5 Yardwork/Stairs/Walk up hill Review of Systems Left shoulder pain with LUE radiculopathy/neuropathy. Patient denies chest pain , shortness of breath, dyspnea on exertion, reflux, cough, wheezing, palpitations. Physical Exam Vital Signs VITALS BP 124/77 P 63 TEMP 97.8 SP02 97%RA RESP 18 Full neck and c-spine range of motion. Full TMJ range of motion. TMD 3.5 finger breaths Mallampati Score 2 Dentition: intact, caps on molars Lungs: clear throughout to auscultation Cardiac: regular rate and rhythm, II/ systolic murmur LUSB Spine: normal Carotid arteries: negative bruit Extremities: no edema Testing Electrocardiogram Date: 08/15/17 Findings: + NSR @ (75) Chest X-Ray Date: 08/15/17 Findings: + NAD and + atherosclerosis of thoracic aorta Echocardiogram Date: 08/22/17 EF 55%. Trace TR. RVSP cannot be properly estimated but at least 31mmhg. Laboratory Results 07/24/18 11:42 07/24/18 11:42 Blood Type A Positive 07/24/18 11:42 Antibody Screen NEGATIVE 07/24/18 11:42 PT 10.5 Seconds (9.0-12.0) 07/24/18 11:42 INR 1.0 (0.9-1.1) 07/24/18 11:42 APTT 27.5 Seconds (21.0-31.0) 07/24/18 11:42 Hemoglobin A1c 5.7 % (4.5-5.6) H 07/24/18 11:42 Urine Color Yellow 07/24/18 11:42 Urine Appearance Clear (Clear) 07/24/18 11:42 Urine pH 6.0 (4.5-7.5) 07/24/18 11:42 Ur Specific [place] 1.012 (1.000-1.030) 07/24/18 11:42 Urine Protein Negative (Negative) 07/24/18 11:42 Urine Glucose (UA) Negative (Negative) 07/24/18 11:42 Urine Ketones Negative (Negative) 07/24/18 11:42 Urine Nitrite Negative (Negative) 07/24/18 11:42 Ur Leukocyte Esterase 1+ (Negative) H 07/24/18 11:42 Urine WBC (Auto) 1-5 /hpf (0-5) 07/24/18 11:42 Urine RBC (Auto) 0-4 /hpf (0-4) 07/24/18 11:42 U Hyaline Cast (Auto) 0 /lpf (0-5) 07/24/18 11:42 U Epithel Cells (Auto) 0-5 /lpf (0-5) 07/24/18 11:42 Urine Bacteria (Auto) Negative (Negative) 07/24/18 11:42
--- NOTE | 2018-07-24 11:42 | PAT Medication Instructions ---
Medication Instructions Date of Service July 24, 2018 Home Medications acetaminophen [Tylenol Extra 500 mg PO Q8H PRN cholecalciferol (vitamin D3) 2,000 unit PO QAM coenzyme Q10 30 mg PO QAM slijdonuhkk-iggscohtj-xrf C-Mn 1 tab PO QAM meloxicam [Mobic] 15 mg PO QAM multivitamin 1 tab PO QAM omega 5-rlu-ftl-fish oil [Fish Oil] 1 tab PO QAM rosuvastatin 5 mg PO HS sertraline 50 mg PO QAM zolpidem 5 - 10 mg PO HS PRN ASK your surgeon for instructions meloxicam [Mobic] 15 mg PO QAM STOP taking 2 weeks before surgery (or as soon as possible if surgery is within 2 weeks) coenzyme Q10 30 mg PO QAM qphduwfatey-ftcrwcxfu-cvk C-Mn 1 tab PO QAM omega 3-nqg-djs-fish oil [Fish Oil] 1 tab PO QAM DO NOT take the morning of surgery cholecalciferol (vitamin D3) 2,000 unit PO QAM multivitamin 1 tab PO QAM Take morning of surgery With a small sip of water, OTHERWISE NOTHING TO EAT OR DRINK AFTER MIDNIGHT: acetaminophen [Tylenol Extra 500 mg PO Q8H PRN (okay to take up to 4 hours prior to surgery if needed) sertraline 50 mg PO QAM Take evening before surgery acetaminophen [Tylenol Extra 500 mg PO Q8H PRN (if needed) rosuvastatin 5 mg PO HS zolpidem 5 - 10 mg PO HS PRN (if needed) Other Notes If you have any questions please call us at [phone] or [phone] or [phone] or [phone]
[2018-07-24 12:49] LABS: Basophils # (auto) 0.03 K/uL (0-0.2); Basophils % (auto) 0.5 %; Eosinophils # (auto) 0.05 K/uL (0-0.5); Eosinophils % (auto) 0.9 %; Hemoglobin 13.9 g/dL (12.0-16.0); Immature Granulocytes # (auto) 0.01 K/uL (0.00-0.02); Immature Granulocytes % (auto) 0.2 %; Lymphocytes # (auto) 1.91 K/uL (1.2-3.4); Lymphocytes % (auto) 33.6 %; Mean Corpuscular Hgb Conc 33.9 g/dL (32-36); Mean Corpuscular Volume 91.9 fL (80-100); Mean Platelet Volume 10.1 fL (7.4-10.4); Monocytes # (auto) 0.34 K/uL (0.11-0.59); Neutrophils # (auto) 3.34 K/uL (1.4-6.5); Neutrophils % (auto) 58.8 %; Platelet Count 287 K/uL (130-400); RDW Coefficient of Variation 13.3 % (11.5-14.5); RDW Standard Deviation 44.3 fL (36.4-46.3); Red Blood Count 4.46 M/uL (4.2-5.4); White Blood Count 5.68 K/uL (4.8-10.8)
[2018-07-24 12:57] LABS: Albumin Level 4.2 gm/dl (3.4-5.0); Appearance Urine Clear (Clear); Bacteria Urine Automated Negative (Negative); Bilirubin Urine Negative (Negative); Calcium 9.6 mg/dl (8.5-10.1); Cast Urine Automated 0 /lpf (0-5); Color Urine Yellow; Creatinine Clr Calc Pharmacy 73.1 ml/min; Epithelial Cell Urine Auto 0-5 /lpf (0-5); Est GFR (Non-African American) 86.3; Glucose Urine UA Negative (Negative); Ketones Urine Negative (Negative); Leukocyte Esterase Urine 1+ (Negative); Nitrite Urine Negative (Negative); Potassium 4.1 mmol/L (3.5-5.1); Protein Urine Negative (Negative); Specific Gravity Urine 1.012 (1.000-1.030); Urobilinogen Urine Negative (Negative)
[2018-07-24 12:59] LABS: Partial Thromboplastin Ratio 1.1; Partial Thromboplastin Time 27.5 Seconds (21.0-31.0); Prothrombin Time 10.5 Seconds (9.0-12.0)
[2018-07-24 13:24] LABS: Estimated Average Glucose 117 mg/dl
--- NOTE | 2018-08-14 23:11 | History and Physical Report ---
DATE OF ADMISSION: 08/15/2018 CHIEF COMPLAINT: Chronic left shoulder pain. HISTORY OF PRESENT ILLNESS: This is a 68-year-old female patient of Dr. Kidd'svitlana complaining of chronic left shoulder pain, longstanding, now progressively getting worse. The patient has failed conservative treatment and has been diagnosed with end-stage osteoarthritis per clinical and radiographic exams. The patient wished to proceed with a left total shoulder arthroplasty. PAST MEDICAL HISTORY: Heart murmur, benign; osteoarthritis; degenerative disc disease in her cervical spine. SOCIAL HISTORY: Nonsmoker, nondrinker. FAMILY HISTORY: Noncontributory. REVIEW OF SYSTEMS: Chronic left shoulder pain and weakness. Otherwise, denies any shortness of breath, chest pain, nausea, vomiting, or any other joint complaints. PAST SURGICAL HISTORY: Tonsillectomy, appendectomy, cholecystectomy, right knee surgery, right hand surgery, right carpal tunnel, shoulder replacement on the right. MEDICATIONS: Crestor 10 mg daily, Zoloft 50 mg daily, Mobic 15 mg daily. She takes fish oil evqg-iln-bwmmxnt daily. She takes a multivitamin daily, Glucosamine and chondroitin daily, CoQ10 daily, vitamin D3 daily, and Tylenol as needed. ALLERGIES: PENICILLIN. PHYSICAL EXAMINATION: GENERAL: Well-developed, well-nourished 68-year-old female in no acute distress. She is alert and oriented x3 and pleasant. HEENT: Normocephalic, atraumatic. Extraocular motions are intact. Pupils are equal, reactive to light. HEART: Regular rate and rhythm, no murmurs. LUNGS: Clear. ABDOMEN: Soft, nontender, bowel sounds present. EXTREMITIES: Left shoulder, she has full range of motion with pain and crepitation. She has 4+/5 strength. NEUROLOGIC: Neurovascularly, she is intact in her left upper extremity. DIAGNOSES: Left shoulder end-stage osteoarthritis, has a history of a benign heart murmur, otherwise a healthy 68-year-old female. PLAN: The patient was advised of her diagnosis. Indications, risks, benefits, postop course have all been reviewed. The patient wished to proceed with a left total shoulder arthroplasty. Necessary consent forms, preoperative testing, and clearances will be obtained.
--- NOTE | 2018-08-15 10:35 | History & Physical Bridge Note ---
Date of Service August 15, 2018 History & Physical Bridge Note I have examined the patient, reviewed the History & Physical and in the interval since the performance of the History & Physical I have noted the following changes of clinical significance: no changes noted
[~2018-08-15 10:55] MED LIST changes: -ACET325T96 PO; -BIOT1CAP9 PO; +BUPIVACAINE/EPINEPHRINE 0.25% 1:200,000 30 ML VIAL ONE; -CEFAZOLIN 1000MG IV PUSH 5 ML IV SCH; -COEN1CAP PO; -DEXAMETHASONE 4 MG TAB PO SCH; +DEXAMETHASONE SOD INJ 4 MG/ML VIAL ONE; -FENTANYL CITRATE INJ 50 MCG/1 ML 2 ML VIAL ONE; -GABAPENTIN 300 MG CAP PO SCH; +GABAPENTIN 300 MG PO SCH; -GLUC1CAP35 PO; -IBUP-1050 PO; -LACTATED RINGER'S 1000ML IV SCH; +LR 15ML/HR IV SCH; -METOCLOPRAMIDE HCL 10 MG TAB PO SCH; +METOCLOPRAMIDE HCL 10 MG TABLET PO SCH; -MIDAZOLAM HCL 1 MG/ML 2ML VIAL ONE; -MULT-506 PO; -ROPIVACAINE 0.5% 5 MG/ML 30 ML VIAL ONE; -ROSU5TAB PO; -SCOPOLAMINE 1.5 MG TDSY TD SCH; -SERT50TA PO; +SODIUM CHLORIDE 0.9% INJ 10 ML VIAL ONE; +VANCOMYCIN HCL 1,250 MG in SODIUM CHLORIDE 0.9% 250 ML IV SCH; -ZOLP5TAB PO; +dexAMETHasone 4 MG TAB PO SCH
[2018-08-15] MEDS ORDERED: PROPOFOL IV EMULSION 10 MG/ML 20 ML VIAL IV ONE (11:53)
[2018-08-15] MEDS ORDERED: MIDAZOLAM HCL 1 MG/ML 2ML VIAL ONE (11:53)
[2018-08-15] MEDS ORDERED: ONDANSETRON INJ 2 MG/ML 2 ML VIAL ONE (11:53)
[2018-08-15] MEDS ORDERED: fentaNYL citrate 100 MCG/2 ML VIAL ONE (11:53)
[2018-08-15] MEDS ORDERED: LIDOCAINE HCL 2% 2 ML VIAL/AMP(20MG/ML) INFIL ONE (11:53)
[2018-08-15] MEDS ORDERED: ROCURONIUM BROMIDE 10 MG/ML 5 ML VIAL ONE (11:53)
[2018-08-15] MEDS ORDERED: DEXAMETHASONE SOD INJ 4 MG/ML VIAL ONE (11:53)
[2018-08-15] MEDS ORDERED: BACITRACIN INJ 50,000 UNIT VIAL ONE (12:04)
[2018-08-15] MEDS ORDERED: EpINEphrine HCL INJ 1 MG/ML 1ML SYRINGE ONE (14:37)
[2018-08-15] MEDS ORDERED: ePHEDrine sulfate 50 MG/ML AMP IV PRN (15:01)
[2018-08-15] MEDS ORDERED: fentaNYL citrate 100 MCG/2 ML VIAL IV PRN (15:01)
[2018-08-15] MEDS ORDERED: ONDANSETRON INJ 2 MG/ML 2 ML VIAL IV PRN ×2 (15:01→17:59)
[2018-08-15] MEDS ORDERED: HYDROmorphone INJ 2 MG/ML SYR/VIAL IV PRN (15:01)
[2018-08-15] MEDS ORDERED: ATROPINE SULFATE 0.1 MG/ML 10ML SYR IV PRN (15:01)
--- NOTE | 2018-08-15 16:52 | Post Operative Brief Note ---
Immediate Post Op Note v1 Date of Surgery August 15, 2018 Pre & Post Diagnosis Operation Date: 08/15/18 13:20 <No data on this case meets the specified criteria> Preop diagnosis: End-stage glenohumeral osteoarthritis left shoulder, postop diagnosis: Same with biceps tenosynovitis, posterior ligaments laxity. Procedure Operation Date: 08/15/18 13:20 <No data on this case meets the specified criteria> Left shoulder total shoulder arthroplasty including biceps tenodesis and posterior capsular plication for posterior ligamentous laxity Surgeon Seymour Kidd MD Film Library Clerk Poli DANIEL Estimated Blood Loss 75 Findings Consistent with Post-Op Diagnosis Drains Hemovac Drain Anesthesia Type General Regional Complications none Disposition Accompanied Patient To Recovery: No Disposition: Recovery Room Overlapping Procedure I was immediately available: during the entire case.
--- NOTE | 2018-08-15 17:08 | Operative Report ---
Post Operative Report Pre & Post Diagnosis Operation Date: 08/15/18 13:20 <No data on this case meets the specified criteria> Preop diagnosis: Left shoulder end-stage glenohumeral osteoarthritis Postop diagnosis: Left shoulder end-stage glenohumeral osteoarthritis, biceps tenosynovitis, posterior capsule ligamentous laxity Procedure Operation Date: 08/15/18 13:20 <No data on this case meets the specified criteria> Left total shoulder arthroplasty including biceps tenodesis and capsular plication posterior capsule for ligamentous laxity Surgeon Seymour Kidd MD Business Objects Report Developer Poli DANIEL Estimated Blood Loss 75 Findings Consistent with Post-Op Diagnosis Specimens Humeral head Drains 2 Hemovac Anesthesia Type General Regional Complications none Disposition Accompanied Patient To Recovery: No Disposition: Recovery Room Indications 68-year-old female with chronic osteoarthritis in her left shoulder. History of successful right shoulder replacement for osteoarthritis. Patient's bone-on- bone in the glenohumeral joint wants to proceed with replacement. Description of Procedure The patient was taken to the operating room and anesthetized under a general and regional block anesthesia. A towel roll was placed under the medial border of the scapula of the left shoulder. The patient's head was placed on a foam headrest and protective eyewear was placed and the extremities were well padded. The arm was draped free in order to manipulate the shoulder as necessary. The shoulder exam demonstrated passive forward elevation to 140 degrees, abduction to 90 degrees, external rotation 40 degrees, internal rotation 50 degrees. The shoulder was sterilely prepped and draped in the usual sterile fashion. An anterior deltopectoral approach was performed. A longitudinal incision was made in the interval. The skin was incised sharply and subcutaneous tissues dissected down to the fascia. The cephalic vein was identified and retracted laterally with the deltoid. Any crossing veins were tied off with silk ties and divided. The clavipectoral fascia was divided at the lateral margin of the conjoined tendon and divided up to the level of the coracoacromial ligament which was preserved. The upper 1 cm of the pectoralis was released for inferior exposure. The biceps tendon findings demonstrated chronic tenosynovitis extending up to the bicipital groove. The rotator cuff tendon findings demonstrated intact rotator cuff. The circumflex vessels were identified and tied off with silk ties and divided laterally. The fibers and subscapularis were split longitudinally at the level of the circumflex vessels down to the capsule and then reflected off the inferior capsule using a Kitner elevator. The axillary nerve was identified with a tug test and protected with a blunt Kenya retractor. The rotator interval was opened up and extended down to the glenoid. The biceps tendon was identified and tenodesed to the pectoralis tendon with [id number] #2 FiberWire sutures and the proximal biceps was resected. The subscapularis tendon was taken down with a trans- tendinous incision leaving a cuff of tissue for repair on the lesser tuberosity. The incision was carried down to the tendon and the capsule and a # 1 Vicryl suture was placed into the free end of the subscapularis tendon. The capsule was subperiosteally dissected off the inferior neck of the humerus exposing the humeral osteophytes which demonstrated large inferior humeral osteophytes extending from lateral through the inferior to the posterior margin of the joint surface. Humeral head was eburnated bone. The osteophytes were excised with an artist chisel and a rongeur. The capsular release along the inferior neck of the humerus was completed. The humerus was then retracted posterior to the glenoid with a Fukuda retractor. The remainder of the biceps tendon and labrum was resected. The glenoid findings demonstrated eccentric wear with articular cartilage remaining on the anterior third to one half of the glenoid with a large anterior superior bone spur in the rotator interval area. There is a mild B2 glenoid wear pattern. I did an anterior inferior and posterior inferior release with electrocautery on bone and a Concepcion elevator with the axillary nerve continuing to be protected with the blunt Hohmann retractor inferiorly. When the releases were completed and the humeral head was exposed with some extension and external rotation and in anatomic head cut was made using the oscillating saw. The humeral head findings demonstrated eburnated bone but no flattening 40 Affinity Cortiloc glenoid. The humeral head was then retracted posterior to the glenoid with Hohmann retractors and Bankart retractor placed anteriorly. A central drill hole was made into the glenoid. The glenoid was sized for a size 40 component. The Tornier ascend flex total shoulder arthroplasty system was used and the Affinity Cortiloc glenoid component was chosen. The glenoid was reamed and the central drill widened and the guide for the peg holes was placed in the peg holes were drilled and a trial component was placed with a tight fit. The trial was removed and the glenoid was irrigated with pulsatile lavage antibiotic solution and the drill holes were dried and packed with epinephrine-soaked tampons for hemostasis. The Palacos G cement was vacuum mixed. The final component was cemented into position and held in position with pressure until the cement cured. Attention was taken to the humeral preparation. A centralizing awl was used in the canal followed by broaches up to a size 3. This had the appropriate fit and fill. A size 43 x 16 millimeter humeral head was then used. It was rotated into appropriate position. A trial reduction was performed and the shoulder was unstable posteriorly with forward elevation and adduction with subluxation of the component posterior inferiorly. The trial humeral head was removed and retractors were placed in a posterior capsular plication performed with figure of 8 #1 Vicryl sutures. The trial was placed back in place and reassess stability again which demonstrate there was 50% translation with posterior draw and good stability and forward elevation no subluxation with range of motion in the plane of the glenoid. The trial was removed and the humerus and canal were irrigated with antibiotic solution with bacitracin. 3 drill holes were made into the hard bone in the bicipital groove lateral to the lesser tuberosity and 3 #5 FiberWire transosseous sutures were placed for repair of the subscapularis. After further irrigation of the canal and the final components were assembled. The final components were the Affinity Cortiloc size 40 glenoid , 3C standard humeral stem, 43 x 16 low offset head. The implant was then impacted into the humerus with a tight press-fit. The humerus was reduced to the glenoid and stability verified. The subscapularis was repaired with the #5 FiberWire sutures in a Carlos-Milton suture technique and lateral row fixation with [id number] #2 FiberWire in the soft tissue. The rotator interval was closed and maximal external rotation. The pectoralis was then closed with [id number] #2 FiberWire suture. 2 Hemovac drains were placed. The deltopectoral interval was closed with [id number] #1 Vicryl sutures. The subcutaneous tissues were closed with interrupted 2-0 Vicryl and the skin was closed with joe and a sterile dressing was applied. The patient tolerated the procedure well. Poli DANIEL my physician vet assistant, assisted in soft tissue retraction instrument management suture management and assisted in the subcutaneous and skin closure and will participate in the postoperative care the patient. I attest to the content of the Intraoperative Record and any orders documented therein. Any exceptions are noted below.
--- NOTE | 2018-08-15 17:29 | Anesthesiology Progress Note ---
Date of Service August 15, 2018 Anesthesia Post Procedure Vital Signs Vital Signs: Temp Pulse Pulse Resp BP Pulse Ox 08/15/18 17:20 93 H 16 131/70 98 08/15/18 17:10 94 H 16 133/72 97 08/15/18 17:00 97 H 15 136/84 97 08/15/18 16:52 36.3 C L 105 H 18 139/91 95 08/15/18 11:54 36.7 C 70 18 183/85 H 96 Pain Intensity Left Shoulder: Pain Intensity: 0 Notes Mental Status: alert / awake / arousable Patient Amnestic to Procedure: Yes Nausea / Vomiting: adequately controlled Pain: adequately controlled Airway Patency, RR, SpO2: stable & adequate BP & HR: stable & adequate Hydration State: stable & adequate Anesthetic Complications: no major complications apparent
--- NOTE | 2018-08-15 17:41 | XRay Report ---
XR shoulder LT min 2V routine CLINICAL HISTORY: Post shoulder surgery COMPARISON: None. DISCUSSION: Anatomic alignment post left shoulder arthroplasty. Good contact between prosthetic and u nderlying bone. Surgical drains in position. Expected postoperative soft tissue change IMPRESSION: Anatomic alignment post left shoulder arthroplasty. The above report was generated using voice recognition software. It may contain grammatical, syntax or spelling errors. Electronically signed by: Poli Nickerson M.D. 08/15/2018 5:40 PM
[2018-08-15] MEDS ORDERED: BISACODYL 10 MG SUPP PR PRN (17:59)
[2018-08-15] MEDS ORDERED: NALOXONE HCL 0.4 MG/1 ML VIAL/CARP IV PRN (17:59)
[2018-08-15] MEDS ORDERED: METOCLOPRAMIDE HCL INJ 5 MG/ML 2 ML VIAL IV PRN (17:59)
[2018-08-15] MEDS ORDERED: MAGNESIUM HYDROXIDE SUSP 30 ML UDC PO PRN (17:59)
--- NOTE | 2018-08-15 19:23 | Internal Medicine Consult Note ---
Date of Consultation August 15, 2018 Assessment & Plan (1) Depression: We will continue Zoloft therapy 50 mg (2) Dyslipidemia: We will continue rosuvastatin 5 or substitute based on our pharmacy formulary (3) Heart murmur: This is noted sounds to be aortic however the patient cannot supply more information History of Present Illness Attending Physician: Seymour Kidd MD History of Present Illness Patient is here for a left shoulder replacement she had a right shoulder replacement approximately 1 year ago she otherwise has been well in the interim she only suffers from depression taking Zoloft and dyslipidemia taking rosuvastatin. She occasionally uses Ambien for sleep she does not smoke she drinks occasional glass of wine but is never had problems from alcohol withdrawal or alcohol in her life. Allergies Allergy/AdvReac Type Severity Reaction Status Date / Time Penicillins Allergy Unknown RASH Verified 08/15/18 11:44 Home Medications Home Medications Medication Instructions Recorded Confirmed Type acetaminophen [Tylenol Extra 500 mg PO Q8H PRN 07/05/18 08/15/18 History Strength] cholecalciferol (vitamin D3) 2,000 unit PO QAM 07/05/18 07/05/18 History [Vitamin D3] coenzyme Q10 30 mg PO QAM 07/05/18 07/05/18 History [id number]-zjd C-Mn 1 tab PO QAM 07/05/18 07/05/18 History [Glucosamine Chondroitin MaxStr] meloxicam [Mobic] 15 mg PO QAM 07/05/18 07/05/18 History multivitamin 1 tab PO QAM 07/05/18 07/05/18 History omega 7-xnx-whr-fish oil [Fish Oil] 1 tab PO QAM 07/05/18 07/05/18 History rosuvastatin 5 mg PO HS 07/05/18 08/15/18 History sertraline 50 mg PO QAM 07/05/18 08/15/18 History zolpidem 5 - 10 mg PO HS PRN 07/05/18 08/15/18 History Patient History Medical History Depression Dyslipidemia Anxiety Degenerative disc disease CERVICAL Hyperlipidemia Migraine Obesity Osteoarthritis Surgical History History of appendectomy History of arthroscopy RIGHT KNEE History of carpal tunnel release R/L History of cholecystectomy History of hysterectomy PARTIAL History of tonsillectomy History of total shoulder replacement RIGHT TSA= 08/30/17= [facility] 1, MAC 3, ETT 7.0 + PNB AT [facility] Hx of eye surgery RIGHT EYE TEAR DUCT REPAIR Social History marital status: Current Living Situation: Spouse Other Information That Helps Us Care for You: No Feels Safe at Home: Yes Safety Concerns: Feels Safe At This Time Smoking Status: Never smoker Do You Dip or Chew Tobacco: No Hx Alcohol Use: Yes Alcohol type: wine Alcohol Intake Frequency: a few times a week Hx Substance Use: No Beliefs That Will Affect Care: None Communication Ability: Effective Review of Systems ROS: well nourished well developed. No double vision blurry vision No problems with speech or swallowing No palpitations, chest pain or pressure No Wheezing or breathing issues No abdominal pain nausea vomiting diarrhea changes in appetite or weight No burning urine urine frequency or changes in color She has some pain to her anterior chest wall just inferior lateral to the dressing of her shoulder there is no ecchymosis there may be some mild swelling it could been from position intraoperatively No skin rashes or oral lesions No unusual bruising or bleeding No focused back pain or numbness or loss of strength No changes in memory or confusion Physical Exam 2 Vital Signs (Past 24 Hours): Last Vital Signs Temp 36.8 C 08/15/18 19:05 Pulse 89 08/15/18 19:05 Resp 17 08/15/18 19:05 BP 133/70 08/15/18 19:05 Pulse Ox 98 08/15/18 19:05 The patient appeared well nourished and normally developed. Vital signs as documented. Head exam is unremarkable. No scleral icterus or corneal arcus noted Neck is without jugular venous distension, thyromegaly, or lymphademopathy Lungs are clear to auscultation and percussion. Cardiac exam reveals Rhythm is regular. Systolic murmur is heard the patient confirms she has had this and this is been worked up by her outpatient physician Abdominal exam reveals normal bowel sounds, no masses, no organomegaly Extremities her left shoulder dressing there is a Hemovac in place her distal left arm is warm to touch good peripheral pulses and capillary refill Neurologic exam is A&Ox3, no focal deficits, strength is equal bilateral with exception of her left shoulder Skin is warm Dry without bruises or lesions
[2018-08-15] MEDS: D5W AND 1/2NSS + 20MEQ KCL 20 MEQ/1,000 ML BAG IV SCH (19:54)
[2018-08-15] MEDS: ROSUVASTATIN CALCIUM 5 MG TAB PO SCH (20:07)
[2018-08-15] MEDS: DOCUSATE SODIUM 100 MG CAP PO SCH (20:07)
[2018-08-15] MEDS: ACETAMINOPHEN 500 MG TAB PO SCH (21:09)
[2018-08-15] MEDS: OXYCODONE HCL IR 5 MG TAB (IMMEDIATE RELEASE) PO PRN (21:14)
[2018-08-15] MEDS: ZOLPIDEM TARTRATE 10 MG TAB PO PRN (21:15)
[2018-08-16] MEDS ORDERED: VANCOMYCIN HCL 1,000 MG in SODIUM CHLORIDE 0.9% 250 ML IV SCH
[2018-08-16] MEDS: OXYCODONE HCL IR 5 MG TAB (IMMEDIATE RELEASE) PO PRN ×5 (01:38→20:03)
[2018-08-16] MEDS: ACETAMINOPHEN 500 MG TAB PO SCH ×3 (05:56→21:20)
[2018-08-16 06:05] LABS: Hematocrit (blood only) 33.8 % (37-47); Hemoglobin 11.4 g/dL (12.0-16.0); Immature Granulocytes # (auto) 0.02 K/uL (0.00-0.02); Immature Granulocytes % (auto) 0.2 %; Lymphocytes # (auto) 0.94 K/uL (1.2-3.4); Lymphocytes % (auto) 8.8 %; Mean Corpuscular Hgb Conc 33.7 g/dL (32-36); Mean Corpuscular Volume 91.8 fL (80-100); Mean Platelet Volume 9.2 fL (7.4-10.4); Monocytes # (auto) 0.63 K/uL (0.11-0.59); Monocytes % (auto) 5.9 %; Neutrophils # (auto) 9.12 K/uL (1.4-6.5); Neutrophils % (auto) 85.1 %; Platelet Count 229 K/uL (130-400); RDW Coefficient of Variation 13.1 % (11.5-14.5); RDW Standard Deviation 44.1 fL (36.4-46.3); Red Blood Count 3.68 M/uL (4.2-5.4); White Blood Count 10.71 K/uL (4.8-10.8)
[2018-08-16 06:37] LABS: BUN Creatinine Ratio 21.9 (10-20); Calcium 8.7 mg/dl (8.5-10.1); Creatinine Clr Calc Pharmacy 77.4 ml/min; Est GFR (African American) 102.7; Est GFR (Non-African American) 88.6; Potassium 4.3 mmol/L (3.5-5.1)
[2018-08-16] MEDS: DOCUSATE SODIUM 100 MG CAP PO SCH ×2 (09:50→21:20)
[2018-08-16] MEDS: MULTIVITAMIN TAB PO SCH (09:51)
[2018-08-16] MEDS: PANTOprazole 40 MG TAB PO SCH (09:51)
[2018-08-16] MEDS: CHOLECALCIFEROL 1,000 UNITS TAB PO SCH (09:51)
[2018-08-16] MEDS: SERTRALINE HCL 50 MG TABLET PO SCH (09:52)
--- NOTE | 2018-08-16 10:00 | Orthopedic Progress Note ---
Date of Service August 16, 2018 Assessment & Plan (1) Degenerative joint disease, shoulder, right: POD #1, Right TSA, biceps tenodesis PT/ OT D/C planning- Home w OPPT As per medicine Subjective POD #1, Doing well, denies sob, cp, n/v. Pain controlled well. Physical Exam 2 Vital Signs (Past 24 Hours): Last Vital Signs Temp 36.6 C 08/16/18 07:03 Pulse 81 08/16/18 07:03 Resp 18 08/16/18 07:03 BP 117/64 08/16/18 07:03 Pulse Ox 95 08/16/18 07:03 Physical Exam: Left shoulder dressings c/d/i, no drainage, fingers mobile sling in tact. A&Ox3.
--- NOTE | 2018-08-16 11:21 | Anesthesiology Progress Note ---
Date of Service August 16, 2018 Anesthesia Post Procedure Vital Signs Vital Signs: Temp Pulse Pulse Resp BP Pulse Ox 08/16/18 10:54 37.0 C 67 18 117/70 93 08/16/18 07:03 36.6 C 81 18 117/64 95 08/16/18 03:45 36.8 C 87 16 112/65 95 08/15/18 23:29 36.6 C 99 H 16 130/68 94 08/15/18 20:58 36.7 C 88 18 130/71 92 08/15/18 19:58 36.8 C 90 18 117/71 93 08/15/18 19:05 36.8 C 89 17 133/70 98 08/15/18 18:32 36.7 C 90 18 138/73 96 08/15/18 18:00 36.5 C 82 18 154/67 H 98 08/15/18 17:45 84 20 138/76 98 08/15/18 17:30 36.3 C L 97 H 20 136/97 98 08/15/18 17:20 93 H 16 131/70 98 08/15/18 17:10 94 H 16 133/72 97 08/15/18 17:00 97 H 15 136/84 97 08/15/18 16:52 36.3 C L 105 H 18 139/91 95 08/15/18 11:54 36.7 C 70 18 183/85 H 96 Pain Intensity Left Shoulder: Pain Intensity: 3 Notes Mental Status: alert / awake / arousable and participated in evaluation Patient Amnestic to Procedure: Yes Nausea / Vomiting: see Notes below Pain: adequately controlled Airway Patency, RR, SpO2: stable & adequate BP & HR: stable & adequate Hydration State: stable & adequate Anesthetic Complications: no major complications apparent and Pt Satisfied with anesthetic care
--- NOTE | 2018-08-16 14:26 | Hospitalist Progress Note ---
Date of Service August 16, 2018 Assessment & Plan (1) Depression: We will continue Zoloft therapy 50 mg mood stable today (2) Dyslipidemia: We will continue rosuvastatin 5 or substitute based on our pharmacy formulary (3) Heart murmur: soft murmur again heard, systolic will sign off at this time, patient stable, labs normal please page Dr. Toribio for any new concerns Subjective patient sitting up in bed eating lunch left shoulder pain is controlled, better with ice applied eating well, no chest pain, no dyspnea labs reviewed all questions answered Review of Systems All systems reviewed & are unremarkable except as noted in HPI & below Musculoskeletal: + joint pain (left shoulder) Physical Exam 2 Vital Signs (Past 24 Hours): Last Vital Signs Temp 37.0 C 08/16/18 10:54 Pulse 67 08/16/18 10:54 Resp 18 08/16/18 10:54 BP 117/70 08/16/18 10:54 Pulse Ox 93 08/16/18 10:54 Constitutional: WD/WN, vitals as above ENMT: external ear and nose normal, oropharynx normal Neck: trachea midline, no thyromegaly Respiratory: normal respiratory effort, lungs clear to auscultation Cardiovascular: Rate/Rhythm: regular rate and regular rhythm Heart Sounds: + murmur (systolic) Vessels: normal peripheral pulses Extremities: normal capillary refill; no edema Gastrointestinal (Abdomen): normal bowel sounds, soft, nontender, no hepatosplenomegaly Musculoskeletal: no cyanosis or clubbing, extremities motor strength 5/5 Extremities: + limited ROM of extremities (left shoulder tender, immobilized) Skin: no rashes, warm and dry Neurologic: patellar DTR's 2+ bilat, sensation intact and PERRL, EOMI, accommodation nl, no face palsy, no dysarthria Psychiatric: A+Ox3, euthymic affect Lymphatic: no cervical or axillary lymphadenopathy Results & Data Laboratory Results Laboratory Results - last 24 hr 08/16/18 08/16/18 08/16/18 05:40 05:40 05:40 WBC 10.71 RBC 3.68 L Hgb 11.4 L Hct 33.8 L MCV 91.8 MCH 31.0 MCHC 33.7 RDW Std Deviation 44.1 RDW Coeff of Rufina 13.1 Plt Count 229 MPV 9.2 Immature Gran % (Auto) 0.2 Neut % (Auto) 85.1 Lymph % (Auto) 8.8 Mobile % (Auto) 5.9 Eos % (Auto) 0.0 Baso % (Auto) 0.0 Immature Gran # (Auto) 0.02 Neut # (Auto) 9.12 H Lymph # (Auto) 0.94 L Mobile # (Auto) 0.63 H Eos # (Auto) 0.00 Baso # (Auto) 0.00 Sodium 138 Potassium 4.3 Chloride 109 H Carbon Dioxide 24 Anion Gap 5.0 BUN 15 Creatinine 0.68 Est Cr Clr Drug Dosing 77.4 Est GFR ( Amer) 102.7 Est GFR (Non-Af Amer) 88.6 BUN/Creatinine Ratio 21.9 H Glucose 145 H Calcium 8.7 Hepatitis C Ab Screen Neg Medications Administered Current Inpatient Medications Acetaminophen (Tylenol) 1,000 mg PO Q8H [facility] Stop: 09/14/18 21:59 Last Admin: 08/16/18 14:04 Dose: 1,000 mg Bisacodyl (Dulcolax) 10 mg MS DAILY PRN PRN Reason: Constipation Stop: 09/14/18 17:58 Diphenhydramine HCl (Benadryl) 25 mg PO Q8H PRN PRN Reason: pruritis Stop: 09/14/18 17:58 Docusate Sodium (Colace) 100 mg PO BID [facility] Stop: 09/14/18 20:59 Last Admin: 08/16/18 09:50 Dose: 100 mg Magnesium Hydroxide (Milk Of Magnesia) 30 ml PO Q6H PRN PRN Reason: Constipation Stop: 09/14/18 17:58 Metoclopramide HCl (Reglan) 10 mg IV Q6H PRN PRN Reason: Nausea And Vomiting Stop: 09/14/18 17:58 Morphine Sulfate (Morphine Sulfate) 2 - 4 mg IV Q3H PRN PRN Reason: Pain Stop: 08/29/18 17:58 Multivitamins (Multivitamin Tab) 1 tab PO QAM [facility] Stop: 09/15/18 08:59 Last Admin: 08/16/18 09:51 Dose: 1 tab Naloxone HCl (Narcan) 0.1 mg IV Q2M PRN PRN Reason: opiate reversal Stop: 09/14/18 17:58 Ondansetron HCl (Zofran) 4 mg IV Q6H PRN PRN Reason: Nausea And Vomiting Stop: 09/14/18 17:58 Oxycodone HCl (Roxicodone Immediate Rel) 5 - 10 mg PO Q4H PRN PRN Reason: Pain Stop: 08/29/18 17:58 Last Admin: 08/16/18 14:03 Dose: 10 mg Pantoprazole Sodium (Protonix) 40 mg PO [facility] Stop: 08/19/18 09:01 Last Admin: 08/16/18 09:51 Dose: 40 mg Rosuvastatin Calcium (Crestor) 5 mg PO [facility] Stop: 09/14/18 20:59 Last Admin: 08/15/18 20:07 Dose: 5 mg Sertraline HCl (Zoloft) 50 mg PO [facility] Stop: 09/15/18 08:59 Last Admin: 08/16/18 09:52 Dose: 50 mg Vitamin D (Vitamin D3) 2,000 units PO [facility] Stop: 09/15/18 08:59 Last Admin: 08/16/18 09:51 Dose: 2,000 units Zolpidem Tartrate (Ambien) 5 - 10 mg PO HS PRN PRN Reason: Sleep Stop: 09/14/18 17:58 Last Admin: 08/15/18 21:15 Dose: 10 mg
[2018-08-16] MEDS: MoRPHine SULFATE 2 MG/ML CARP IV PRN ×2 (16:58→21:20)
[2018-08-16] MEDS: D5W AND 1/2NSS + 20MEQ KCL 20 MEQ/1,000 ML BAG IV SCH (19:16)
[2018-08-16] MEDS: ROSUVASTATIN CALCIUM 5 MG TAB PO SCH (21:20)
[2018-08-17] MEDS: ZOLPIDEM TARTRATE 10 MG TAB PO PRN
[2018-08-17] MEDS: OXYCODONE HCL IR 5 MG TAB (IMMEDIATE RELEASE) PO PRN ×3 (05:25→09:14)
[2018-08-17] MEDS: ACETAMINOPHEN 500 MG TAB PO SCH (06:05)
[2018-08-17] MEDS: CHOLECALCIFEROL 1,000 UNITS TAB PO SCH (07:22)
[2018-08-17] MEDS: PANTOprazole 40 MG TAB PO SCH (07:23)
[2018-08-17] MEDS: MULTIVITAMIN TAB PO SCH (07:23)
[2018-08-17] MEDS: DOCUSATE SODIUM 100 MG CAP PO SCH (07:23)
[2018-08-17] MEDS: SERTRALINE HCL 50 MG TABLET PO SCH (07:24)
--- NOTE | 2018-08-17 08:37 | Orthopedic Progress Note ---
Date of Service August 17, 2018 Assessment & Plan (1) Degenerative joint disease, shoulder, right: POD #2 Left TSA PT/ OT D/C planning- home today with OPPT. Subjective POD #2, Doing well, denies sob, cp, n/v. Pain controlled well. Physical Exam 2 Vital Signs (Past 24 Hours): Last Vital Signs Temp 37.3 C 08/17/18 06:07 Pulse 70 08/17/18 06:07 Resp 16 08/17/18 06:07 BP 123/76 08/17/18 06:07 Pulse Ox 94 08/17/18 06:07 Physical Exam: Left shoulder incision c/d/i, no drainage, no erythema, fingers mobile, sling in tact.
[2018-08-17 08:55] LABS: Basophils # (auto) 0.02 K/uL (0-0.2); Basophils % (auto) 0.2 %; Eosinophils # (auto) 0.02 K/uL (0-0.5); Eosinophils % (auto) 0.2 %; Hematocrit (blood only) 34.5 % (37-47); Hemoglobin 11.4 g/dL (12.0-16.0); Immature Granulocytes # (auto) 0.03 K/uL (0.00-0.02); Immature Granulocytes % (auto) 0.3 %; Lymphocytes # (auto) 1.59 K/uL (1.2-3.4); Lymphocytes % (auto) 15.9 %; Mean Platelet Volume 9.4 fL (7.4-10.4); Monocytes # (auto) 0.57 K/uL (0.11-0.59); Monocytes % (auto) 5.7 %; Neutrophils # (auto) 7.75 K/uL (1.4-6.5); Neutrophils % (auto) 77.7 %; Platelet Count 231 K/uL (130-400); RDW Coefficient of Variation 13.8 % (11.5-14.5); RDW Standard Deviation 47.5 fL (36.4-46.3); Red Blood Count 3.67 M/uL (4.2-5.4); White Blood Count 9.98 K/uL (4.8-10.8)
[2018-08-17 09:29] LABS: BUN Creatinine Ratio 26.5 (10-20); Calcium 8.9 mg/dl (8.5-10.1); Creatinine Clr Calc Pharmacy 89.2 ml/min; Est GFR (African American) 107.6; Est GFR (Non-African American) 92.9
[2018-08-17] MEDS: MoRPHine SULFATE 2 MG/ML CARP IV PRN (10:39)
--- NOTE | 2018-09-02 19:33 | Discharge Summary ---
HISTORY OF PRESENT ILLNESS: This is a 68-year-old female patient of Dr. Kidd'svitlana complaining of chronic left shoulder pain, longstanding, now progressively getting worse. The patient has failed conservative treatment and has elected to proceed with a left total shoulder arthroplasty. PAST MEDICAL HISTORY: Heart murmur, osteoarthritis and degenerative disc disease in her cervical spine. POSTOPERATIVE COURSE: The patient underwent a left shoulder total shoulder arthroplasty, biceps tenodesis and posterior capsular plication on 08/15/2018. She was followed closely with medical consultation, physical therapy and pain control. The patient did well and was discharged home on postoperative day #2. PHYSICAL EXAMINATION ON DISCHARGE: EXTREMITIES: Left shoulder incision was clean, dry and intact. Ray were intact. Skin edges were approximated well. There was no redness or drainage. Fingers were mobile. Sling was intact. Neurologically and vascularly, she was intact in her left upper extremity. DIAGNOSES: Status post left total shoulder arthroplasty, biceps tenodesis and posterior capsular plication. She also has a history of heart murmur, osteoarthritis and degenerative disc disease in her cervical spine. PLAN: The patient was discharged home on postoperative day #2. She will do outpatient physical therapy. She will continue her preadmission medications with the addition of pain medications. She will follow up as scheduled as an outpatient.
== END 2018-08-17 11:13 | disposition home or self-care (01) | DRG 483 ==
LOC: ASU 10:55 → 3E 17:01